=== PATIENT | female | born 1955 | race Caucasian/White ===

== ENCOUNTER 2019-06-28 22:20 | Emergency (ER) | payer OTHER ==
[~2019-06-28] VITALS: Ht 154.9 cm; Wt 57.2 kg
[2019-06-28] MEDS ORDERED: Magnesium 1GM/D5W 100ML PREMIX 200 ML IV ONE ×2 (22:27→22:38)
[2019-06-28] MEDS ORDERED: ALBUTEROL FS 2.5 MG/3 ML VIAL.NEB CONTNEB ONE (22:30)
[2019-06-28] MEDS ORDERED: methylPREDNISolone SOD SUCC 125 MG/2ML VIAL IV ONE (22:30)
[2019-06-28] MEDS ORDERED: IPRATROPIUM NEB FS 0.5 MG/2.5 ML AMPUL.NEB NEB ONE (22:30)
[2019-06-28] MEDS ORDERED: IV NS 0.9% 1,000 ML BAG IV ONE (22:30)
--- NOTE | 2019-06-28 22:30 | NUR ---
CLAUDIA FROM FROM HOME TO ER BED 9. AAOX4. SOB, GASPING AND PUFFING. C/O SOB WORST TODAY WHICH STARTED 3 DAYS AGO. PT REPORTS TAKING 3-4 DOSE OF HER INHALER BUT NO RELIEF. PER EMS REPORT, PT SATTING IN 80S. ALBUTEROL INHALATION GIVEN ENROUTE AND PT VERBALIZED SLIGHT RELIEF. PT NOTED WITH BILAT WHEEZING. MD AT BEDSIDE. ORDERS RECIEVD
[2019-06-28] MEDS ORDERED: IPRATROPIUM NEB FS 0.5 MG/2.5 ML AMPUL.NEB ONE (22:35)
[2019-06-28] MEDS ORDERED: ALBUTEROL FS 2.5 MG/3 ML VIAL.NEB ONE (22:35)
[2019-06-28] MEDS ORDERED: methylPREDNISolone SOD SUCC 125 MG/2ML VIAL ONE (22:38)
--- NOTE | 2019-06-28 22:40 | NUR ---
RT AT BEDSIDE
--- NOTE | 2019-06-28 22:50 | NUR ---
XRAY AT BEDSIDE
--- NOTE | 2019-06-29 01:56 | NUR ---
IV removed. Catheter intact and site benign. Pressure and 4x4 applied to site. No bleeding noted.Patient discharged to home in stable condition. Written and verbal after care instructions given. Patient verbalizes understanding of instruction. Pt ambulatory with a steady gait
[2019-06-29 01:58] VITALS: BP 117/64
== END 2019-06-29 02:00 | disposition home or self-care (01) ==
LOC: ER 22:22
DX: J45.909 Unspecified asthma, uncomplicated (principal); R94.31 Abnormal electrocardiogram [ECG] [EKG]; I10 Essential (primary) hypertension; F17.210 Nicotine dependence, cigarettes, uncomplicated
CPT/HCPCS: 71045; 93005; 94644; 96365; 96375; 99285; J2930; J3475; J7030